=== PATIENT | male | born 1980 | race Caucasian/White ===

== ENCOUNTER 2020-06-14 15:49 | Emergency (ER) | payer BC ==
[~2020-06-14] VITALS: Ht 182.9 cm; Wt 81.6 kg
[2020-06-14 15:55] VITALS: BP_SYST 144
--- NOTE | 2020-06-14 15:55 | NUR ---
PT TO WAIT IN ER LOBBY, NO ER BED AVAILABLE AT THIS TIME.
--- NOTE | 2020-06-14 16:00 | NUR ---
PT AAO AND AMBULATORY C/O LEFT SIDED FLANK PAIN X I MONTH AND A HALF. PT REPORTS WORSENING SYMPTOMS AND A CONSTANT DULLA ACHE. PT REPORTS PAIN 5/10.
--- NOTE | 2020-06-14 17:44 | NUR ---
Patient to ER bed 1 to gown for evaluation. Side rails up. Report given to KERVIN.
[2020-06-14] MEDS ORDERED: KETOROLAC TROMETHAMINE 60 MG/2 ML VIAL IM ONE (18:00)
--- NOTE | 2020-06-14 18:11 | NUR ---
Pt off the unit for CT
[2020-06-14 18:12] LABS: BASOPHILS # (AUTO) 0.1 K/uL (0.0-0.2); EOSINOPHILS # (AUTO) 2.6 K/uL (0.0-0.4); EOSINOPHILS % (AUTO) 18.7 % (0.0-4.0); HEMATOCRIT 44.8 % (36-54); HEMOGLOBIN 14.7 g/dL (14.0-18.0); LYMPHOCYTES % (AUTO) 14.7 % (20.5-51.5); MEAN CORPUSCULAR HEMOGLOBIN 30 pg (27-31); MEAN CORPUSCULAR HGB CONC 33 % (32-36); MEAN CORPUSCULAR VOLUME 90 fL (79.0-98.0); MONOCYTES # (AUTO) 1.2 K/uL (0.0-1.0); NEUTROPHILS # (AUTO) 7.9 K/uL (1.8-7.7); NEUTROPHILS % (AUTO) 56.6 % (40.0-70.0); PLATELET COUNT (AUTO) 266 K/uL (130-430); RED BLOOD CELL COUNT(AUTO) 4.96 MIL/uL (4.2-6.2); RED CELL DISTRIBUTION WIDTH 12.5 % (9.0-15.0); WHITE BLOOD COUNT (AUTO) 13.9 K/uL (4.8-10.8)
[2020-06-14 18:27] LABS: CALCIUM 9.5 mg/dL (8.4-11.0); CREATININE 0.9 mg/dL (0.55-1.30); POTASSIUM 4.9 mmol/L (3.5-5.1)
[2020-06-14 18:32] LABS: ALBUMIN 3.3 g/dL (3.4-4.8); TOTAL BILIRUBIN 0.4 mg/dL (0.0-1.0)
[2020-06-14 22:39] VITALS: BP_SYST 138
--- NOTE | 2020-06-14 22:39 | NUR ---
Patient given written and verbal discharge instructions and verbalizes understanding. ER MD discussed with patient the results and treatment provided. Patient in stable condition. ID arm band removed. IV catheter removed intact and dressing applied, no active bleeding. No Rx given. Patient educated on pain management and to follow up with PMD. Pain Scale 0/10. Opportunity for questions provided and answered.
== END 2020-06-14 22:39 | disposition home or self-care (01) ==
LOC: SED 15:49
DX: N28.89 Other specified disorders of kidney and ureter (principal)
CPT/HCPCS: 36415; 74176; 80053; 81002; 85025; 96372; 99284; J1885

== ENCOUNTER 2020-06-19 14:51 | Emergency (ER) | payer BC ==
[~2020-06-19] VITALS: Ht 182.9 cm; Wt 81.6 kg
[2020-06-19 15:04] VITALS: BP_SYST 148
--- NOTE | 2020-06-19 15:22 | NUR ---
Patient to ER bed 06 to gown for evaluation. Side rails up.
--- NOTE | 2020-06-19 15:24 | NUR ---
Patient arrived in the ED c/o hematuria and left flank pain, recent CT showed a renal mass. Denied any chest pain or shortness of breath. Denied any fevers, chills, nausea or vomiting. Patient is alert and oriented x4, respirations even and unlabored, speaking in full sentences, and ambulating with a steady gait. VSS, pain level 9/10. Informed of the approximate wait time. Instructed to notify ED staff for any changes in condition or worsening of symptoms while waiting to be seen by an ED provider. Patient verbalized understanding.
--- NOTE | 2020-06-19 15:28 | NUR ---
ER Dr. Hatch at bedside examining patient.
--- NOTE | 2020-06-19 15:39 | NUR ---
dialysis patient care technician at bedside collecting blood specimen as ordered by Dr. Hatch. Patient tolerated the procedure well.
[2020-06-19 16:07] LABS: HEMATOCRIT 40.2 % (36-54); HEMOGLOBIN 13.1 g/dL (14.0-18.0); MEAN CORPUSCULAR HEMOGLOBIN 29 pg (27-31); MEAN CORPUSCULAR HGB CONC 33 % (32-36); MEAN CORPUSCULAR VOLUME 89 fL (79.0-98.0); PLATELET COUNT (AUTO) 269 K/uL (130-430); RED BLOOD CELL COUNT(AUTO) 4.53 MIL/uL (4.2-6.2); RED CELL DISTRIBUTION WIDTH 12.2 % (9.0-15.0)
[2020-06-19 16:27] LABS: CALCIUM 8.9 mg/dL (8.4-11.0); CREATININE 1.08 mg/dL (0.55-1.30); POTASSIUM 4.3 mmol/L (3.5-5.1)
[2020-06-19 17:39] LABS: BAND % (MANUAL) 22 % (0-6); LYMPHOCYTES % (MANUAL) 6 % (20-46); MONOCYTES % (MANUAL) 7 % (0-11)
[2020-06-19 17:40] LABS: ATYPICAL LYMPHOCYTES % 1 % (0-0); BASOPHILS % (MANUAL) 0 % (0-2); EOSINOPHILS % (MANUAL) 20 % (0-7)
[2020-06-19 17:49] VITALS: BP_SYST 148
--- NOTE | 2020-06-19 17:49 | NUR ---
ER MD discussed with the patient the results and treatment provided. Patient given written and verbal discharge instructions and verbalized understanding. Opportunity for questions provided and answered. Patient in stable condition, last set of vital signs within normal limits, pain scale 0/10, speaking in full sentences and ambulated with a steady gait upon discharge. ID arm band removed. Rx [place] and given. Patient educated on pain management and to follow up with PMD. Medication side effect fact sheet provided.
== END 2020-06-19 17:49 | disposition home or self-care (01) ==
LOC: SED 14:51
DX: D49.512 Neoplasm of unspecified behavior of left kidney (principal); R31.9 Hematuria, unspecified
CPT/HCPCS: 36415; 80048; 85007; 85027; 99283